=== PATIENT | male | born 1995 | race Caucasian/White ===

== ENCOUNTER 2022-11-22 02:34 | Emergency (ER) | payer SELFPAY ==
[2022-11-22] MEDS ORDERED: TETANUS, DIPHTHERIA, PERTUSSIS VAC/PF 0.5ML (>10YR OLD) IM ONE (02:45)
[2022-11-22] MEDS ORDERED: LIDOCAINE HCL/EPINEPHRINE 1%-EPI 1:100,000 20 ML VIAL INFIL ONE (02:45)
[2022-11-22] MEDS ORDERED: SODIUM CHLORIDE 0.9% 1,000 ML IV ONE ×2 (02:45→03:00)
[2022-11-22] MEDS ORDERED: ONDANSETRON HCL 4MG/2ML INJ IV STA (02:45)
[2022-11-22] MEDS ORDERED: MORPHINE SULFATE 4 MG/ML CPJ (NOT FOR IM USE) IV STA (02:45)
[2022-11-22 03:04] LABS: BASOPHILS % 0.5 % (0.0-2.0); EOSINOPHILS % 2.5 % (0.0-5.0); HEMATOCRIT. 41.5 % (42.0-52.0); HEMOGLOBIN. 14.6 g/dL (14.0-18.0); LYMPHOCYTES % 37.4 % (20.0-50.0); MEAN CORPUSCULAR HEMOGLOBIN 29.8 pg (28.0-32.0); MEAN CORPUSCULAR HGB CONC 35.2 g/dL (31.0-37.0); MEAN CORPUSCULAR VOLUME 84.8 fL (80.0-94.0); MEAN PLATELET VOLUME 7.5 fl (7.4-10.4); MONOCYTES % 5.6 % (2.0-8.0); PLATELET 351 x1000/uL (130-400); RED CELL DISTRIBUTION WIDTH 13.4 % (11.6-14.6); WHITE BLOOD COUNT 8.6 x1000/uL (4.5-11.0)
[2022-11-22 03:13] LABS: CHLORIDE 112 mEq/L (98-107); INDEX HEMOLYSI 1 (1-3); INDEX ICTERIC 1 (1-4); INDEX LIPEMIC 1 (1-3); POTASSIUM 4.3 mEq/L (3.5-5.1); SODIUM 141 mEq/L (136-145)
[2022-11-22 03:15] LABS: PROTHROMBIN TIME 11.1 sec (9.6-11.0)
[2022-11-22 03:20] LABS: ALANINE AMINOTRANSFERASE 43 IU/L (13-61); ALBUMIN 3.7 g/dL (3.4-5.0); ASPARTATE AMINOTRANSFERASE 18 IU/L (15-37); BILIRUBIN TOTAL 0.4 mg/dL (0.1-1.0); CALCIUM 7.6 mg/dL (8.5-10.1); CARBON DIOXIDE 20 mEq/L (21-32); CREATININE 0.9 mg/dL (0.6-1.3); ETHANOL BLOOD 55 mg/dL (<10); GLUCOSE 154 mg/dL (70-105); PROTEIN TOTAL 7.1 g/dL (6.0-8.3); UREA NITROGEN BLOOD 11 mg/dL (7-21)
[2022-11-22 04:33] VITALS: BP 111/59; PULSE 73; RESP 16; TEMP 98
[2022-11-22] MEDS ORDERED: BACITRACIN ZINC OINT UDPKT TOP ONE (04:45)
[2022-11-22 05:00] LABS: HEMATOCRIT 37.6 % (42.0-52.0); HEMOGLOBIN 13.1 g/dL (14.0-18.0); MEAN CORPUSCULAR HEMOGLOBIN 29.2 pg (28.0-32.0); MEAN CORPUSCULAR HGB CONC 34.9 g/dL (31.0-37.0); MEAN CORPUSCULAR VOLUME 83.6 fL (80.0-94.0); PLATELET 237 x1000/uL (130-400); RED CELL DISTRIBUTION WIDTH 13.4 % (11.6-14.6); WHITE BLOOD COUNT 14.6 x1000/uL (4.5-11.0)
[2022-11-22] MEDS ORDERED: MORP15TA67 MT (05:12)
[2022-11-22] MEDS ORDERED: TOPUD PO (05:12)
[2022-11-22] MEDS ORDERED: CEPH500C2 MT (05:14)
[2022-11-22] MEDS ORDERED: SULF1TAB48 MT (05:14)
== END 2022-11-22 07:14 | disposition home or self-care (01) ==
LOC: EDBD → ER 02:34
DX: S81.811A Laceration without foreign body, right lower leg, initial encounter (principal); W26.8XXA Contact with other sharp object(s), not elsewhere classified, initial encounter; Y93.89 Activity, other specified; Y92.89 Other specified places as the place of occurrence of the external cause; Y99.8 Other external cause status
CPT/HCPCS: 80053; 80320; 85027; 85025; 85610; 86850; 86900; 86901; 86920; 36415; 73590; 90715; 12005; 90471; 96374; 96375; 99285; J2405; J2270; J7030; Z7610 ×2; J3490; P9016; G0480

== ENCOUNTER 2022-11-24 13:45 | Emergency (ER) | payer MEDICAID ==
[~2022-11-24] VITALS: Ht 175.3 cm; Wt 79.0 kg
[~2022-11-24 13:45] MED LIST: CEPH500C2 MT; MORP15TA67 MT; SULF1TAB48 MT; TOPUD PO
[2022-11-24 14:30] VITALS: O2SAT 98
[2022-11-24 16:22] VITALS: BP 135/74; PULSE 74; RESP 20; TEMP 98.4
== END 2022-11-24 16:56 | disposition home or self-care (01) ==
LOC: ER 13:45
DX: S81.811D Laceration without foreign body, right lower leg, subsequent encounter (principal); X58.XXXD Exposure to other specified factors, subsequent encounter
CPT/HCPCS: 99281

== ENCOUNTER 2022-11-30 17:50 | Emergency (ER) | payer MEDICAID ==
[~2022-11-30] VITALS: Ht 175.3 cm; Wt 68.0 kg
[2022-11-30 18:01] VITALS: BP 138/83; O2SAT 99
[2022-11-30] MEDS ORDERED: BO1 TP (18:47)
[2022-11-30 18:56] VITALS: PULSE 88; RESP 20; TEMP 98.1
== END 2022-11-30 19:00 | disposition home or self-care (01) ==
LOC: ER 17:50
DX: Z48.00 Encounter for change or removal of nonsurgical wound dressing (principal)
CPT/HCPCS: 99282

== ENCOUNTER 2022-12-05 08:13 | Emergency (ER) | payer MEDICAID ==
[~2022-12-05] VITALS: Ht 175.3 cm; Wt 68.0 kg
[~2022-12-05 08:13] MED LIST changes: +BO1 TP
[2022-12-05 08:18] VITALS: O2SAT 100
[2022-12-05] MEDS ORDERED: BO1 TP (08:48)
[2022-12-05 08:56] VITALS: BP 135/85; PULSE 69; RESP 16; TEMP 99.2
== END 2022-12-05 08:58 | disposition home or self-care (01) ==
LOC: ER 08:13
DX: S81.811D Laceration without foreign body, right lower leg, subsequent encounter (principal); X58.XXXD Exposure to other specified factors, subsequent encounter; Z79.899 Other long term (current) drug therapy
CPT/HCPCS: 99281; Z7610 ×3